=== PATIENT | female | born 1990 | race Hispanic/Latino ===

== ENCOUNTER 2018-07-08 16:50 | Emergency (ER) | payer OTHER ==
[~2018-07-08] VITALS: Ht 154.9 cm; Wt 54.4 kg
[~2018-07-08 16:50] MED LIST: ZOFRAN ODT4 MG SL
[2018-07-08 18:28] LABS: COLOR,URINE YELLOW (YELLOW)
[2018-07-08 18:29] LABS: BILIRUBIN,URINE NEGATIVE (NEGATIVE); CLARITY,URINE HAZY (CLEAR); KETONES,URINE NEGATIVE (NEGATIVE); LEUKOCYTE ESTERASE ,URINE TRACE (NEGATIVE); NITRITE,URINE NEGATIVE (NEGATIVE); PROTEIN,URINE DIPSTICK NEGATIVE (NEGATIVE); URINE UROBILINOGEN 0.2 mg/dL (0.2 - 1)
[2018-07-08 18:30] LABS: PREGNANCY TEST, URINE NEGATIVE (NEGATIVE)
[2018-07-08 18:42] LABS: BACTERIA,URINE FEW /HPF; EPITHELIAL CELLS,URINE FEW /LPF; RBC,URINE 0-5 /HPF (0-5); WBC,URINE (MAN) 0-5 /HPF (0-5)
[2018-07-08] MEDS ORDERED: CEFDINIR300 MG PO (18:46)
== END 2018-07-08 19:27 | disposition home or self-care (01) ==
LOC: ER 16:50
DX: R30.0 Dysuria (principal)
CPT/HCPCS: 81001; 81025; 99283

== ENCOUNTER 2020-02-12 10:06 | Emergency (ER) | payer OTHER ==
[~2020-02-12] VITALS: Ht 154.9 cm; Wt 54.4 kg
[~2020-02-12 10:06] MED LIST changes: +CEFDINIR300 MG PO
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
--- OUTSIDE RECORDS SUMMARY | 2020-02-12 10:09 | XMS REPORT | Summary of Care ---
Author Author [facility] ospital Organization [facility] Address Unknown Phone Unavailable Encounter HQ Bev(FIN) [id number] Date(s): 08/14/19 - 08/14/19 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
--- OUTSIDE RECORDS SUMMARY | 2020-02-12 10:09 | XMS REPORT | Summary of Care ---
Author Author [facility] Organization [facility] Address Unknown Phone Unavailable Encounter DANITA Pablo(PHILLIP) [id number] Date(s): 09/07/16 - 09/07/16 [facility] [address] [place] [address]- Discharge Diagnosis: Laceration of chin Discharge Diagnosis: Scalp laceration Discharge Diagnosis: Closed head injury Discharge Disposition: Home or Self Care Attending Physician: Zahra Pacheco DO Vital Signs Most recent to 1 2 oldest [Reference Range]: Height 165.1 cm (09/07/16 3:37 AM) Temperature Oral 98.1 DegF 98.4 DegF [96.4-99.1 DegF] (09/07/16 6:30 AM) (09/07/16 3:37 AM) Blood Pressure 117/80 mmHg 115/85 mmHg [90-140/60-90 mmHg] (09/07/16 6:30 AM) (09/07/16 3:37 AM) Respiratory Rate 20 BRMIN 24 BRMIN [14-20 BRMIN] (09/07/16 6:30 AM) *HI* (09/07/16 3:37 AM) Peripheral Pulse 99 bpm 132 bpm Rate [60-100 bpm] (09/07/16 6:30 AM) *HI* (09/07/16 3:37 AM) Weight 54.545 kg (09/07/16 3:37 AM) Body Mass Index 20.01 m2 (09/07/16 3:37 AM) Problem List No data available for this section Allergies, Adverse Reactions, Alerts Substance Reaction Severity Status NKDA Active Medications ketOROLAC 30 mg, 1 mL, Route: IVP, Drug form: INJ, ONCE, Dosing Weight 54.545, kg, Priorit y: STAT, Start date: 09/07/16 5:23:00 TRACTOR DISTRIBUTOR, Stop date: 09/07/16 5:23:00 TRACTOR DISTRIBUTOR Notes: (Same as:Toradol) IV bolus must be given >15 seconds. Give IM administration slowly and deeply into the muscle.Not for use > 4 days MEDICATION WASTE Product Size: 30 mgProduct Wasted: ___ mg Start Date: 09/07/16 Stop Date: 09/07/16 Status: Completed morphine Sulfate 4 mg, 1 mL, Route: IVP, Drug form: SOLN, ONCE, Dosing Weight 54.545, kg, Priorit y: STAT, Start date: 09/07/16 5:24:00 TRACTOR DISTRIBUTOR, Stop date: 09/07/16 5:24:00 TRACTOR DISTRIBUTOR Notes: (Same as:MORPhine Sulfate) Start Date: 09/07/16 Stop Date: 09/07/16 Status: Completed ondansetron 4 mg, 2 mL, Route: IVP, Drug form: INJ, ONCE, Dosing Weight 54.545, kg, Priority : STAT, Start date: 09/07/16 5:24:00 TRACTOR DISTRIBUTOR, Stop date: 09/07/16 5:24:00 TRACTOR DISTRIBUTOR Notes: (Same as: Zofran) MEDICATION WASTE Product Size: 4 mgProduct Was amalia: ___ mg Start Date: 09/07/16 Stop Date: 09/07/16 Status: Completed Sodium Chloride 0.9% (Bolus) IV 1,000 mL, 2,000 ml/hr, Infuse Over: 30 minutes, Route: IV, 1,000, Drug form: INJ , ONCE, Priority: STAT, Dosing Weight 54.545 kg, Start date: 09/07/16 3:49:00 CS T, Duration: 1 doses or times, Stop date: 09/07/16 3:49:00 TRACTOR DISTRIBUTOR Start Date: 09/07/16 Stop Date: 09/07/16 Status: Completed Results ELECTROLYTES Most recent to 1 oldest [Reference Range]: Sodium Lvl [135-145 143 mEq/L mEq/L] (09/07/16 3:56 AM) Potassium Lvl 3.1 mEq/L [3.5-5.1 mEq/L] *LOW* (09/07/16 3:56 AM) Chloride Lvl [95-109 107 mEq/L mEq/L] (09/07/16 3:56 AM) CO2 [24-32 mEq/L] 26 mEq/L (09/07/16 3:56 AM) AGAP [10.0-20.0 13.1 mEq/L mEq/L] (09/07/16 3:56 AM) CHEM PANEL Most recent to 1 oldest [Reference Range]: Creatinine Lvl 0.72 mg/dL [0.50-1.40 mg/dL] (09/07/16 3:56 AM) eGFR 118 mL/min/1.73m2 1 *NA* (09/07/16 3:56 AM) BUN [7-22 mg/dL] 4 mg/dL *LOW* (09/07/16 3:56 AM) B/C Ratio [6-25] 6 (09/07/16 3:56 AM) Glucose Lvl [70-99 113 mg/dL mg/dL] *HI* (09/07/16 3:56 AM) Total Protein 7.4 g/dL [6.4-8.4 g/dL] (09/07/16 3:56 AM) Albumin Lvl [3.5-5.0 4.2 g/dL g/dL] (09/07/16 3:56 AM) Globulin [2.7-4.2 3.2 g/dL g/dL] (09/07/16 3:56 AM) A/G Ratio [0.7-1.6] 1.3 (09/07/16 3:56 AM) Calcium Lvl 8.0 mg/dL [8.5-10.5 mg/dL] *LOW* (09/07/16 3:56 AM) ALT [0-65 unit/L] 30 unit/L (09/07/16 3:56 AM) AST [0-37 unit/L] 21 unit/L (09/07/16 3:56 AM) Alk Phos [39-136 71 unit/L unit/L] (09/07/16 3:56 AM) Bili Total [0.2-1.3 0.5 mg/dL mg/dL] (09/07/16 3:56 AM) 1Result Comment: The eGFR is calculated using the CKD-EPI formula. In most young, healthy individuals the eGFR will be >90 mL/min/1.73m2. The eGFR declines with age. An eGFR of 60-89 may be normal in some populations, particularly the elderly, for whom the CKD-EPI formula has not been extensively validated. Use of the eGFR is not recommended in the following populations: Individuals with unstable creatinine concentrations, including patients and those with serious co-morbid conditions. Patients with extremes in muscle mass or diet. The data above are obtained from the National Kidney Disease Education Program ( NKDEP) which additionally recommends that when the eGFR is used in patients with extremes of body mass index for purposes of drug dosing, the eGFR should be mul tiplied by the estimated BMI. TOXICOLOGY Most recent to 1 oldest [Reference Range]: Etoh (%) .118 % *NA* (09/07/16 3:56 AM) Ethanol Lvl 118 mg/dL *NA* (09/07/16 3:56 AM) ENDOCRINOLOGY Most recent to 1 oldest [Reference Range]: hCG Tot <1 mIU/mL *NA* (09/07/16 3:56 AM) HEMATOLOGY Most recent to 1 oldest [Reference Range]: WBC [3.7-10.4 K/CMM] 9.6 K/CMM (09/07/16 3:56 AM) RBC [4.20-5.40 4.49 M/CMM M/CMM] (09/07/16 3:56 AM) Hgb [12.0-16.0 g/dL] 14.5 g/dL (09/07/16 3:56 AM) Hct [36.0-48.0 %] 41.7 % (09/07/16 3:56 AM) MCV [80.0-98.0 fL] 92.9 fL (09/07/16 3:56 AM) MCH [27.0-31.0 pg] 32.2 pg *HI* (09/07/16 3:56 AM) MCHC [32.0-36.0 34.7 g/dL g/dL] (09/07/16 3:56 AM) RDW [11.5-14.5 %] 12.9 % (09/07/16 3:56 AM) Platelet [133-450 273 K/CMM K/CMM] (09/07/16 3:56 AM) MPV [7.4-10.4 fL] 8.4 fL (09/07/16 3:56 AM) Segs [45.0-75.0 %] 79.0 % *HI* (09/07/16 3:56 AM) Lymphocytes 13.5 % [20.0-40.0 %] *LOW* (09/07/16 3:56 AM) Monocytes [2.0-12.0 7.3 % %] (09/07/16 3:56 AM) Basophils [0.0-1.0 0.2 % %] (09/07/16 3:56 AM) Segs-Bands # 7.6 K/CMM [1.5-8.1 K/CMM] (09/07/16 3:56 AM) Lymphocytes # 1.3 K/CMM [1.0-5.5 K/CMM] (09/07/16 3:56 AM) Monocytes # [0.0-0.8 0.7 K/CMM K/CMM] (09/07/16 3:56 AM) PT [12.0-14.7 13.3 seconds seconds] (09/07/16 3:56 AM) INR [0.85-1.17] 0.99 (09/07/16 3:56 AM) PTT [22.9-35.8 28.1 seconds seconds] (09/07/16 3:56 AM) Immunizations No data available for this section Procedures Procedure Date Related Diagnosis Body Site section Social History Social History Type Response Smoking Status Current some day smoker; Ex posure to Tobacco Smoke None; Cigarette Smoking Last 365 Days Yes; Reg Smoking Cessatio n Counseling Yes Assessment and Plan No data available for this section
--- OUTSIDE RECORDS SUMMARY | 2020-02-12 10:09 | XMS REPORT | Summary of Care ---
Author Author [facility] Organization [facility] Address Unknown Phone Unavailable Encounter DANITA Pablo(PHILLIP) [id number] Date(s): 01/08/17 - 01/08/17 [facility] [address] [place] [address]- Discharge Diagnosis: Acute upper respiratory infection Discharge Diagnosis: CAP (community acquired pneumonia) Discharge Disposition: Home or Self Care Attending Physician: Jonathan Pacheco DO Vital Signs Most recent to 1 2 oldest [Reference Range]: Height 152.4 cm (01/08/17 3:32 PM) Temperature Oral 98 DegF 97.9 DegF [96.4-99.1 DegF] (01/08/17 5:31 PM) (01/08/17 3:32 PM) Blood Pressure 130/88 mmHg 135/84 mmHg [90-140/60-90 mmHg] (01/08/17 5:31 PM) (01/08/17 3:32 PM) Respiratory Rate 18 BRMIN 18 BRMIN [14-20 BRMIN] (01/08/17 5:31 PM) (01/08/17 3:32 PM) Peripheral Pulse 87 bpm 88 bpm Rate [60-100 bpm] (01/08/17 5:31 PM) (01/08/17 3:32 PM) Weight 54.545 kg (01/08/17 3:32 PM) Body Mass Index 23.48 m2 (01/08/17 3:32 PM) Problem List No data available for this section Allergies, Adverse Reactions, Alerts Substance Reaction Severity Status NKDA Active Medications amoxicillin 500 mg oral tablet 500 mg = 1 tab, PO, BID, X 10 day, # 20 tab, 0 Refill(s) Start Date: 01/08/17 Stop Date: 01/18/17 Status: Ordered Tessalon 200 mg oral capsule 200 mg = 1 cap, PO, TID, X 7 day, # 21 cap, 0 Refill(s) Start Date: 01/08/17 Stop Date: 01/15/17 Status: Ordered Results No data available for this section Immunizations No data available for this section Procedures Procedure Date Related Diagnosis Body Site section Social History Social History Type Response Smoking Status Current some day smoker; Ex posure to Tobacco Smoke None; Cigarette Smoking Last 365 Days Yes; Reg Smoking Cessatio n Counseling Yes Assessment and Plan No data available for this section
--- OUTSIDE RECORDS SUMMARY | 2020-02-12 10:09 | XMS REPORT | Clinical Summary ---
Author Author [facility] Organization [facility] Address Unknown Phone Unavailable Care Team Providers Care Implementation Project Manager Name Role Phone Moe Hector MD PCP Allergies No Known Allergies Medications End Date Status Medication Sig Dispensed Refills Start Date Active azithromycin (ZITHROMAX) 250 mg. 0 01/15 250 mg tablet 9 Active escitalopram (LEXAPRO) 10 10 mg. 0 10/11 7/201 mg tablet 9 Active predniSONE (DELTASONE) 10 10 mg. 0 //201 mg tablet 9 Active promethazine/dextromethor 0 velasquez (PROMETHAZINE-DM) 9 6.25-15 mg/5 mL syrup Active naproxen (NAPROSYN) 500 Take 1 tablet 60 tablet 1 mg tabletIndications: by mouth 2 9 Chronic low back pain times daily with bilateral sciatica, as needed for unspecified back pain Pain. laterality Active gabapentin (NEURONTIN) Take 1 90 capsule 1 300 mg capsule daily 9 capsuleIndications: for 1 week. Chronic low back pain You may with bilateral sciatica, increase the unspecified back pain dose to 1 laterality capsule twice daily if needed.. Active cyclobenzaprine Take 1 tablet 45 tablet 0 04/13/20 1 (FLEXERIL) 10 mg by mouth 3 9 tabletIndications: times daily Chronic right-sided low as needed for back pain with Muscle right-sided sciatica Spasms. Active FLUoxetine (PROZAC) 20 mg Take 2 60 capsule 2 capsuleIndications: GILBERTO capsules by 9 (generalized anxiety mouth daily. disorder) Active propranolol (INDERAL) 10 Take 1-2 180 tablet 2 1 mg tabletIndications: GILBERTO tablets by 9 (generalized anxiety mouth up to disorder) three times daily as needed for anxiety. 03/20/2019 Discontinued (Therapy comple amalia) hydrOXYzine (ATARAX) 25 Take 1 tablet 60 tablet 1 mg tabletIndications: by mouth 2 9 Anxiety disorder, times daily unspecified type as needed for Anxiety or Insomnia. 03/20/2019 Discontinued (Therapy comple amalia) busPIRone (BUSPAR) 5 mg Take 1 tablet 180 tablet 0 tabletIndications: GILBERTO by mouth 2 9 (generalized anxiety times daily. disorder) 07/08/2019 Discontinued FLUoxetine (PROZAC) 20 mg Take 1 30 capsule 1 capsuleIndications: GILBERTO capsule by 9 (generalized anxiety mouth daily. disorder) 07/08/2019 Discontinued (Reorder) propranolol (INDERAL) 10 Take 1 tablet 90 tablet 1 mg tabletIndications: GILBERTO by mouth 3 9 (generalized anxiety times daily disorder) as needed (anxiety). 10/17/2019 FLUoxetine (PROZAC) 10 mg Take 1 67 capsule 1 capsuleIndications: capsule by 0 Generalized anxiety mouth daily disorder for 7 days, THEN 2 capsules daily for 30 days. Active Problems Problem Noted Date GILBERTO (generalized anxiety disorder) 01/19/2019 Encounters Care Team Description Date Type Specialty Sondra Gacria ResidentMD Generalized anxiety disorder (Primary Dx ) 09/10/2019 Office Visit Psychiatry Shweta Gannon MD Panic disorder (Primary Dx); GILBERTO (generalized anxiety disorder) 07/08/2019 Office Visit Psychiatry Moe Hector MD Hyperlipidemia, unspecified hyperlipidem ia type (Primary Dx); Elevated LFTs; Chronic right-sided low back pain with right-sided sciatica 04/13/2019 Office Visit Family Practice Shweta Gannon MD GILBERTO (generalized anxiety disorder) (Prim elizabeth Dx) 03/18/2019 Office Visit Psychiatry after 02/11/2019 Family History Medical History Relation Name Comments Arthritis Maternal Grandmother Cancer Maternal Grandmother Arthritis Mother Psychiatry Mother Relation Name Status Comments Brother Alive 2 Father Alive Maternal Grandfather Alive Maternal Grandmother Alive Mother Alive Paternal Grandfather Alive Paternal Grandmother Alive Sister Alive 3 Son Alive 1 Social History Date Tobacco Use Types Packs/Day Years Used Former Smoker Smokeless Tobacco: Never Used Drinks/Week oz/Week Comments Alcohol Use Never Alcohol Habits Answer Date Recorded How often do you have a drink containing alcohol? Never 01/19/2019 How many drinks containing alcohol do you have on No t asked a typical day when you are drinking? How often do you have six or more drinks on one Not asked occasion? Sex Assigned at Date Recorded Not on file Industry Job Start Date Occupation Not on file Not on file Not on file Travel End Travel History Travel Start No recent travel history available. Last Filed Vital Signs Reading Time Taken Comments Vital Sign 122/81 09/10/2019 8:13 AM FLIGHT SIMULATOR TEACHER Blood Pressure 85 09/10/2019 8:13 AM FLIGHT SIMULATOR TEACHER Pulse 36.7 C (98.1 F) 09/10/2019 8:13 AM FLIGHT SIMULATOR TEACHER Temperature 20 09/10/2019 8:13 AM FLIGHT SIMULATOR TEACHER Respiratory Rate 98% 07/08/2019 9:08 AM CDT Oxygen Saturation - - Inhaled Oxygen Concentration 62.8 kg (138 lb 6.4 oz) 09/10/2019 8:13 AM FLIGHT SIMULATOR TEACHER Weight 154.9 cm (5' 1") 09/10/2019 8:13 AM FLIGHT SIMULATOR TEACHER Height 26.15 09/10/2019 8:13 AM FLIGHT SIMULATOR TEACHER Body Mass Index Plan of Treatment Health Maintenance Due Date Last Done Comments Cervical Cancer Scrn (3 2012 Yrs) IMM Influenza Seasonal 06/09/2020 Oct to November (>/= 19 yrs) Procedures Comments Procedure Name Priority Date/Time Associated Diag nosis HEPATITIS PANEL Routine 04/13/2019 Elevated LFTs 4:00 PM CDT after 02/11/2019 Results * Hepatitis Panel (04/13/2019 4:00 PM CDT) Hep C Vir Ab Negative Negative [facility] Hep B Surface Negative Negative [facility] Hep A Vir Ab Negative Negative [facility] Hep B Core Ab Negative Negative [facility] Specimen Blood Performing Organization Address City/State/Zipcode Ph one Number [facility] [address] [place] [address] after 02/11/2019 Insurance Type Payer Benefit Subscriber ID Effective Phone Address Plan / Dates Group [facility] O [employer] xxxxxxxxx 2017-[address] [id number] [place] [address] [employer] O [employer] xxxxxxxxx 2017-P [address] [id number] [place] [address] [phone] [place] [employer] [facility] (Home) [place] [address] Mauricio Heck Psych Self 1990 [id number] [place] [employer] 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
--- OUTSIDE RECORDS SUMMARY | 2020-02-12 10:09 | XMS REPORT | Summary of Care ---
Author Author [facility] Organization [facility] Address Unknown Phone Unavailable Encounter DANITA Pablo(PHILLIP) [id number] Date(s): 07/03/16 - 07/03/16 [facility] [address] [place] [address]- [phone] Discharge Diagnosis: Contusion of hand Discharge Disposition: Home or Self Care Attending Physician: Katelyn Stovall DO Vital Signs Most recent to 1 2 oldest [Reference Range]: Height 152.4 cm (07/03/16 7:48 PM) Temperature Oral 97.6 DegF 97.9 DegF [96.4-99.1 DegF] (07/03/16 9:59 PM) (07/03/16 7:48 PM) Blood Pressure 109/61 mmHg 128/73 mmHg [90-140/60-90 mmHg] (07/03/16 9:59 PM) (07/03/16 7:48 PM) Respiratory Rate 16 BRMIN 18 BRMIN [14-20 BRMIN] (07/03/16 9:59 PM) (07/03/16 7:48 PM) Peripheral Pulse 72 bpm 75 bpm Rate [60-100 bpm] (07/03/16 9:59 PM) (07/03/16 7:48 PM) Weight 56.818 kg (07/03/16 7:48 PM) Body Mass Index 24.46 m2 (07/03/16 7:48 PM) Problem List No data available for this section Allergies, Adverse Reactions, Alerts Substance Reaction Severity Status NKDA Active Medications Ultram 50 mg oral tablet 50 mg = 1 tab, PO, Q4H, PRN pain, X 5 day, # 30 tab, 0 Refill(s) Start Date: 07/03/16 Stop Date: 07/08/16 Status: Ordered Results No data available for [...]
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
[2020-02-12] MEDS ORDERED: KETOROLAC TROMETHAMINE 30 MG/ML VIAL IV STA ×2 (10:25→13:48)
[2020-02-12] MEDS ORDERED: ONDANSETRON HCL INJ 2MG/ML 2ML 2 MG/ML VIAL IV STA (10:25)
[2020-02-12] MEDS ORDERED: SODIUM CHLORIDE 0.9% 1000ML 1,000 ML IV STA ×2 (10:25)
[2020-02-12] MEDS ORDERED: SODIUM CHLORIDE 0.9% 1000ML 1,000 ML ONE (10:33)
[2020-02-12 10:47] LABS: BASOPHILS % 0.1 % (0.0-1.0); EOSINOPHILS % 0.1 % (0.0-6.0); HEMATOCRIT 43.2 % (34.2-44.1); HEMOGLOBIN 15.1 g/dL (12.0-16.0); LYMPHOCYTES # (AUTO) 1.3 (1.0-3.2); LYMPHOCYTES % 12.5 % (18.0-39.1); MEAN CORPUSCULAR HEMOGLOBIN 31.1 pg (28-32); MEAN CORPUSCULAR VOLUME 88.9 fL (81-99); MONOCYTES # (AUTO) 0.5 (0.2-0.8); MONOCYTES % 4.7 % (4.4-11.3); NEUTROPHILS # (AUTO) 8.7 (2.1-6.9); NEUTROPHILS % 82.2 % (38.7-80.0); PLATELET COUNT 317 x10e3/uL (140-360); RED BLOOD COUNT 4.86 x10e6/uL (3.6-5.1); RED CELL DISTRIBUTION WIDTH 12.2 % (11.7-14.4)
[2020-02-12 11:02] LABS: CLARITY,URINE CLEAR (CLEAR); COLOR,URINE YELLOW (YELLOW); LEUKOCYTE ESTERASE ,URINE NEGATIVE (NEGATIVE); NITRITE,URINE NEGATIVE (NEGATIVE); PROTEIN,URINE DIPSTICK NEGATIVE (NEGATIVE)
[2020-02-12 11:03] LABS: ALANINE AMINOTRANSFERASE 24 IU/L (0-55); ALBUMIN 4.1 g/dL (3.5-5.0); ALBUMIN/GLOBULIN RATIO 1.3 (0.8-2.0); ALKALINE PHOSPHATASE 63 IU/L (40-150); ANION GAP 13.9 mmol/L (8-16); BILIRUBIN,URINE NEGATIVE (NEGATIVE); BLOOD UREA NITROGEN 6 mg/dL (7-26); BUN/CREATININE RATIO 9 (6-25); CALCIUM 9.8 mg/dL (8.4-10.2); CARBON DIOXIDE 25 mmol/L (22-29); CHLORIDE 101 mmol/L (98-107); EST GLOMERULAR FILTRATION RATE > 60 ML/MIN (60-); GLUCOSE 112 mg/dL (74-118); KETONES,URINE NEGATIVE (NEGATIVE); POTASSIUM 3.9 mmol/L (3.5-5.1); SODIUM 136 mmol/L (136-145); URINE UROBILINOGEN 0.2 mg/dL (0.2 - 1)
[2020-02-12 11:06] LABS: LIPASE 11 U/L (8-78)
--- NOTE | 2020-02-12 11:09 | Emergency Department Note ---
History of Present Illnes History of Present Illness Chief Complaint: Abdominal Complaints History of Present Illness This is a 29 year old female arrives to the ED with abdominal pain for several days, pain is worsening associate nausea and vomiting. Historian: Patient Arrival Mode: Car Paper Latcher Required: No Onset (how long ago): day(s) Radiation: back Severity: moderate Onset quality: gradual Duration (how long): day(s) Timing of current episode: constant Progression: worsening Relieving factors: none Exacerbating factors: eating Past Medical/Family History Physician Review I have reviewed the patient's past medical and family history. Any updates have been documented here. Past Medical History Recent Fever: Yes Clinical Suspicion of Infectio: Yes New/Unexplained Change in Ment: No Past Medical History: None Other Medical History: PT REPORTS OVERDOSE 2014 Past Surgical History: Other Surgery: C SECTION Social History Smoking Cessation: Never Smoker Counseling Performed: No Alcohol Use: None Any Illegal Drug Use: No TB Exposure/Symptoms: No Physically hurt or threatened: No Family History Family history of heart diseas: No Other Last Tetanus: >5 YEARS Any Pre-Existing Lines (PICC,: No Is patient up to date on immun: Yes Last Flu: OOD Last Pneumovax: NA Review of Systems Review of Systems Constitutional: no symptoms EENTM: no symptoms Cardiovascular: no symptoms Respiratory: no symptoms Gastrointestinal: abdominal pain, nausea, vomiting Genitourinary: no symptoms Musculoskeletal: no symptoms Neurological: no symptoms Psychological: no symptoms Endocrine: no symptoms Hematological/Lymphatic: no symptoms Review of other systems All other systems reviewed and negative. Physical Exam Related Data Allergies: Coded Allergies: No Known Allergies (Unverified , 07/24/11) Triage Vital Signs Vital Signs Date Time Temp Pulse Resp B/P (MAP) Pulse Ox O2 Delivery O2 Flow Rate FiO2 620 10:11 99.0 120 20 155/95 100 Vital signs reviewed: Yes Physical Exam CONSTITUTIONAL Constitutional: well-developed, well-nourished HENT HENT: normocephalic, atraumatic, oropharynx clear/moist, nose normal HENT L/R: left ext ear normal, right ext ear normal EYES Eyes: PERRL, conjunctivae normal NECK Neck: ROM normal PULMONARY Pulmonary: effort normal, breath sounds normal CARDIOVASCULAR Cardiovascular: regular rhythm, heart sounds normal, capillary refill normal, normal rate GASTROINTESTINAL Abdominal: soft, bowel sounds normal, tender GENITOURINARY Genitourinary: exam deferred SKIN Skin: warm, dry MUSCULOSKELETAL Musculoskeletal: ROM normal NEUROLOGICAL Neurological: alert, oriented x 3, no gross motor or sensory deficits PSYCHOLOGICAL Psychological: mood/affect normal, judgement normal Results Laboratory Result Diagram: 02/12/20 1015 Laboratory Laboratory Tests Test 02/12/20 10:15 White Blood Count 10.52 x10e3/uL (4.8-10.8) Red Blood Count 4.86 x10e6/uL (3.6-5.1) Hemoglobin 15.1 g/dL (12.0-16.0) Hematocrit 43.2 % (34.2-44.1) Mean Corpuscular Volume 88.9 fL (81-99) Mean Corpuscular Hemoglobin 31.1 pg (28-32) Mean Corpuscular Hemoglobin Concent 35.0 g/dL (31-35) Red Cell Distribution Width 12.2 % (11.7-14.4) Platelet Count 317 x10e3/uL (140-360) Neutrophils (%) (Auto) 82.2 % (38.7-80.0) Lymphocytes (%) (Auto) 12.5 % (18.0-39.1) Monocytes (%) (Auto) 4.7 % (4.4-11.3) Eosinophils (%) (Auto) 0.1 % (0.0-6.0) Basophils (%) (Auto) 0.1 % (0.0-1.0) Neutrophils # (Auto) 8.7 (2.1-6.9) Lymphocytes # (Auto) 1.3 (1.0-3.2) Monocytes # (Auto) 0.5 (0.2-0.8) Eosinophils # (Auto) 0.0 (0.0-0.4) Basophils # (Auto) 0.0 (0.0-0.1) Absolute Immature Granulocyte (auto 0.04 x10e3/uL (0-0.1) Urine Color Yellow (YELLOW) Urine Clarity Clear (CLEAR) Urine pH 7.5 (5 - 7) Urine Specific Otis 1.020 (1.010-1.025) Urine Protein Negative (NEGATIVE) Urine Glucose (UA) Negative (NEGATIVE) Urine Ketones Negative (NEGATIVE) Urine Blood Negative (NEGATIVE) Urine Nitrite Negative (NEGATIVE) Urine Bilirubin Negative (NEGATIVE) Urine Urobilinogen 0.2 mg/dL (0.2 - 1) Urine Leukocyte Esterase Negative (NEGATIVE) Human Chorionic Gonadotropin, Qual Negative (NEGATIVE) Lab results reviewed: Yes Imaging Imaging results reviewed: Yes Imaging Comments Impression: Bilateral pelvic cysts which could represent functional cysts in a woman of childbearing age. Follow-up with pelvic ultrasound in approximately 6 weeks is recommended. Dense pill-like objects in the distal ileum. This could represent orally ingested radiodense material. Clinical correlation is recommended. Possible hepatic steatosis. No other significant acute abnormalities seen. Critical Care Time Subsequent provider I assumed direction of critical care for this patient from another provider of my specialty. Assessment & Plan Assessment & Plan Final Impression: (1) UNSPECIFIED OVARIAN CYST, LEFT SIDE (2) UNSPECIFIED OVARIAN CYST, RIGHT SIDE Assessment & Plan CBC, CMP, scheduled and pelvis 29-year-old female brought to the ED with complaints of abdominal pain, patient be tachycardic in the emergency department. Patient's pain is primarily epigastric and located on the right upper quadrant. There is considered as a p ossible surgical abdomen in the form of acute cholecystitis. Patient's CT scan does not show any surgical process but is consistent with multiple sclerosis. Patient has no tenderness over her adnexal area, patient given outpatient CHIEF SUBSTATION OPERATOR follow-up for further evaluation and management of her cysts including but not limited to chance last ultrasound and/or other CHIEF SUBSTATION OPERATOR procedure. Last Vital Signs Date Time Temp Pulse Resp B/P (MAP) Pulse Ox O2 Delivery O2 Flow Rate FiO2 02/12/20 10:11 99.0 120 20 155/95 100 Home Meds Active Scripts Cefdinir (OMNICEF) 300 Mg Capsule, 300 MG PO BID for 7 Days, #14 Prov:BERRY BARNES SCANNING SUPERVISOR 07/08/18 Reported Medications Ondansetron (ZOFRAN ODT) 4 Mg Tab.rapdis, 4 MG SL Q6H PRN for NAUSEA, TAB 12/17/15 Medications in the ED Sodium Chloride 1,000 ml @ 0 mls/hr Q0M STAT IV Last administered on 02/12/20at 10:31; Admin Dose 1,000 MLS/HR; Start 02/12/20 at 10:25; Stop 02/12/20 at 10:27; Status DC Sodium Chloride 1,000 ml @ 0 mls/hr Q0M STAT IV ; Start 02/12/20 at 10:25; Stop 02/12/20 at 10:27; Status DC Ketorolac Tromethamine 30 mg ONCE STAT IV Last administered on 02/12/20at 10:31; Admin Dose 30 MG; Start 02/12/20 at 10:25; Stop 02/12/20 at 10:34; Status DC Ondansetron HCl 4 mg NOW STAT IV Last administered on 02/12/20at 10:32; Admin Dose 4 MG; Start 02/12/20 at 10:25; Stop 02/12/20 at 10:34; Status DC Sodium Chloride 1,000 ml @ STK-MED ONCE .ROUTE ; Start 02/12/20 at 10:33; Stop 02/12/20 at 10:28; Status DC MARIANA BLEVINS, Feb 12, 2020 11:09
[2020-02-12 11:11] LABS: BACTERIA,URINE RARE /HPF; RBC,URINE 0-5 /HPF (0-5); WBC,URINE (MAN) 0-5 /HPF (0-5)
[2020-02-12 11:12] LABS: EPITHELIAL CELLS,URINE FEW /LPF
[2020-02-12 12:26] VITALS: BP 122/71
--- NOTE | 2020-02-12 12:53 | NUR ---
per pt son he will use [facility]
--- NOTE | 2020-02-12 13:09 | Diagnostic Imaging Report ---
CT of the abdomen and pelvis. Comparison: None] Clinical History: Right upper quadrant pain Technique: Helical CT scan of the abdomen and pelvis was performed. Intravenous contrast administration was utilized. Oral contrast administration was not utilized. Coronal and sagittal reconstructions were generated from the raw data. Multiple images were submitted for interpretation. This exam was performed according to our departmental dose-optimization program which includes automated exposure control, adjustment of the mA and/or kV according to patient size Discussion: Inferior chest: Unremarkable. Liver: Diffuse steatosis suspected. Otherwise unremarkable. Spleen: Unremarkable Pancreas: Unremarkable Biliary tree and gallbladder: Unremarkable Adrenal glands: Unremarkable Kidneys and ureters: Unremarkable Vasculature: Unremarkable Lymph nodes: Unremarkable Bowel: Unremarkable. Dense oval objects in the distal ileum could represent early ingested material. Pelvis: Urinary bladder is unremarkable. Uterus unremarkable. A right ovarian cyst measuring approximately 4.7 x 4.3 cm. A left ovarian cyst measuring approximately 2.9 x 2.1 cm. This should be further evaluated with a follow-up female pelvic ultrasound in approximately 6 weeks. Pelvic wall unremarkable. Peritoneum: Unremarkable Perineal compartments: unremarkable. Fluid: No free fluid Bones: Unremarkable Body wall: Unremarkable Impression: Bilateral pelvic cysts which could represent functional cysts in a woman of childbearing age. Follow-up with pelvic ultrasound in approximately 6 weeks is recommended. Dense pill-like objects in the distal ileum. This could represent orally ingested radiodense material. Clinical correlation is recommended. Possible hepatic steatosis. No other significant acute abnormalities seen. Signed by: Joel Olsen MD on 02/12/2020 1:05 PM
--- NOTE | 2020-02-12 13:19 | NUR ---
Dang castillo in [facility] - 02/12/20 at 1320 by ALTHEA gordon home called with 30 min eta
[2020-02-12] MEDS ORDERED: IOPAMIDOL 370 MG/ML 200 ML INFUS..BTL INJ ONE (14:14)
[2020-02-12] MEDS ORDERED: SODIUM CHLORIDE 0.9% 50ML 50 ML ONE (14:14)
[2020-02-12] MEDS ORDERED: ZOFRAN4 MG SL (14:19)
[2020-02-12] MEDS ORDERED: ULTRAM50 MG PO (14:19)
== END 2020-02-12 14:26 | disposition home or self-care (01) ==
LOC: ER 10:06
DX: R10.13 Epigastric pain (principal); R11.2 Nausea with vomiting, unspecified; N83.202 Unspecified ovarian cyst, left side; N83.201 Unspecified ovarian cyst, right side
CPT/HCPCS: 36415; 74177; 80053; 81001; 83690; 84702; 85025; 99284; J1885; J2405; J7030; Q9967

== ENCOUNTER → 2020-02-19 | Outpatient (CLI) | payer OTHER ==
[~2020-02-19] MED LIST changes: +ULTRAM50 MG PO; +ZOFRAN4 MG SL
--- NOTE | 2020-02-19 17:45 | Diagnostic Imaging Report ---
Hepatobiliary Scan with Gallbladder Ejection Fraction Clinical information: Upper abdominal pain with nausea Report: Following intravenous administration of 6.1 millicuries of Tc-99m mebrofenin, dynamic images of the abdomen in the anterior projection were obtained through 60 minutes. Sincalide (CCK analog) 1.3 micrograms was administered intravenously over 30 minutes with additional imaging for determination of gallbladder ejection fraction. Perfusion to the liver is normal. Extraction of tracer from the blood pool by the liver parenchyma is normal. Tracer is seen promptly within the biliary tract. The gallbladder begins to fill by 8 minutes post-injection of tracer and fills adequately. Tracer is seen in the small bowel by 52 minutes. The gallbladder ejection fraction with administration of sincalide is 86% (normal greater than 40%). Impression: 1. Filling of the gallbladder excludes the diagnosis of acute cystic duct obstruction/acute cholecystitis. 2. Normal gallbladder ejection fraction of 86% does not support the clinical diagnosis of chronic cholecystitis/gallbladder dyskinesia. Signed by: Dr. Jasmin Chery M.D. on 02/19/2020 5:41 PM
== END ==
LOC: NM 13:07
PROVIDERS: ATTEND Internal Medicine Gastroenterology
DX: R10.10 Upper abdominal pain, unspecified (principal); R11.0 Nausea
CPT/HCPCS: 78227; A9537

== ENCOUNTER 2020-10-04 17:52 | Emergency (ER) | payer OTHER ==
[~2020-10-04] VITALS: Ht 154.9 cm; Wt 54.4 kg
[2020-10-04] MEDS ORDERED: BUPIVACAINE HCL 0.5% INJ 30 ML VIAL INJ ONE ×2 (19:15)
[2020-10-04] MEDS ORDERED: BUPIVACAINE HCL 0.25% 10ML MPF VIAL INJ ONE ×2 (20:40→20:45)
[2020-10-04] MEDS ORDERED: AUGMENTIN 875-1 EACH PO (21:16)
[2020-10-04] MEDS ORDERED: ULTRAM50 MG PO (21:17)
== END 2020-10-04 21:42 | disposition home or self-care (01) ==
LOC: ER 19:01
DX: L03.032 Cellulitis of left toe (principal)
CPT/HCPCS: 99283

== ENCOUNTER 2021-03-25 17:40 | Emergency (ER) | payer OTHER ==
[~2021-03-25] VITALS: Ht 154.9 cm; Wt 54.4 kg
[~2021-03-25 17:40] MED LIST changes: +AUGMENTIN 875-1 EACH PO
[2021-03-25] MEDS ORDERED: AUGMENTIN 875-1 EACH PO (17:59)
[2021-03-25 18:08] VITALS: BP 138/82
== END 2021-03-25 18:14 | disposition home or self-care (01) ==
LOC: ER 17:50
DX: L03.032 Cellulitis of left toe (principal)
CPT/HCPCS: 99282

== ENCOUNTER 2021-08-27 16:37 | Emergency (ER) | payer OTHER ==
[~2021-08-27] VITALS: Ht 154.9 cm; Wt 54.4 kg
== END 2021-08-27 18:12 | disposition home or self-care (01) ==
LOC: ER 17:06
DX: L03.031 Cellulitis of right toe (principal)
CPT/HCPCS: 99282

== ENCOUNTER 2022-10-20 17:49 | Emergency (ER) | payer OTHER ==
[~2022-10-20] VITALS: Ht 154.9 cm; Wt 54.4 kg
[2022-10-20] MEDS ORDERED: DOXYCYCLINE HY100 MG PO (18:25)
[2022-10-20] MEDS ORDERED: BACTRIM DS TAB1 EACH PO (18:25)
[2022-10-20 19:00] VITALS: BP 139/84
== END 2022-10-20 18:30 | disposition home or self-care (01) ==
LOC: ER 17:52
DX: L02.01 Cutaneous abscess of face (principal); F17.210 Nicotine dependence, cigarettes, uncomplicated
CPT/HCPCS: 99283

== ENCOUNTER 2025-07-01 22:49 | Emergency (ER) | payer SELFPAY ==
[~2025-07-01] VITALS: Ht 154.9 cm; Wt 54.4 kg
[~2025-07-01 22:49] MED LIST changes: +BACTRIM DS TAB1 EACH PO; +DOXYCYCLINE HY100 MG PO
[2025-07-01 23:05] VITALS: PULSE 144; RESP 20; TEMP 98.3; O2SAT 100
== END 2025-07-01 23:59 | disposition left against medical advice (07) ==
LOC: ER 23:59
DX: S69.90XA Unspecified injury of unspecified wrist, hand and finger(s), initial encounter (principal)
CPT/HCPCS: 99282